=== PATIENT | female | born 1935 | race Caucasian/White ===

== ENCOUNTER 2020-07-09 12:40 | Inpatient (IN) | payer OTHER ==
[~2020-07-09] VITALS: Ht 157.5 cm; Wt 52.6 kg
[2020-07-09 12:41] VITALS: BP 188/56
[2020-07-09 13:01] LABS: ABSOLUTE NEUTROPHILS 6.6 thou/uL (1.4-8.2); BASOPHILS 0.4 % (0.0-2.0); EOSINOPHILS 4.4 % (0.0-3.0); HEMATOCRIT 38.9 % (37.0-47.0); HEMOGLOBIN 12.9 gm/dL (12.0-15.0); LYMPHOCYTES 15.4 % (24.0-44.0); MCHC 33.2 g/dL (28.0-37.0); MCV 87.3 fL (80.0-100.0); PLATELET COUNT 319 thou/uL (150-400); POLYS 75.8 % (36.0-66.0); RBC 4.46 mil/uL (4.20-5.00); WBC 8.6 thou/uL (4.0-11.0)
[2020-07-09 13:03] LABS: ANION GAP 7 mmol/L (7-16); BUN 12 mg/dL (7-18); CALCIUM 8.8 mg/dL (8.5-10.1); CHLORIDE 102 mmol/L (98-107); CO2 30 mmol/L (21-32); CREATININE 0.6 mg/dL (0.6-1.0); GLUCOSE 160 mg/dL (74-106); POTASSIUM 4.4 mmol/L (3.5-5.1); SODIUM 139 mmol/L (136-145)
[2020-07-09 13:12] LABS: MAGNESIUM 1.9 mg/dL (1.8-2.4); TROPONIN-I <0.06 ng/mL (<0.06)
[2020-07-09 13:43] LABS: URINE BILIRUBIN NEGATIVE (Negative); URINE BLOOD 1+ (Negative); URINE COLOR YELLOW; URINE GLUCOSE-RANDOM* NEGATIVE (Negative); URINE KETONES NEGATIVE (Negative); URINE NITRITE-REFLEX NEGATIVE (Negative); URINE PROTEIN (DIPSTICK) NEGATIVE (Negative); URINE UROBILINOGEN 0.2 E.U./dl (0.2-1.0)
[2020-07-09 13:44] LABS: URINE CLARITY HAZY; URINE LEUKOCYTES-REFLEX 3+ (Negative)
[2020-07-09 13:52] LABS: CASTS None Seen /LPF (None Seen); SQUAMOUS 0-3 Few /LPF (0-3)
[2020-07-09 13:53] LABS: URINE RBC 0-2 Rare /HPF (0-2); URINE WBC-REFLEX >25 Many /HPF (0-5)
[2020-07-09 13:54] LABS: CRYSTALS None Seen /LPF (None Seen); WBC CLUMPS Few (None Seen)
[2020-07-09 16:15] VITALS: BP 160/54
[2020-07-09] MEDS ORDERED: TYLENOL325 MG PO (16:17)
[2020-07-09] MEDS ORDERED: COLACE100 MG PO (16:17)
[2020-07-09] MEDS ORDERED: CALCIUM500 MG PO (16:17)
[2020-07-09] MEDS ORDERED: CLARITIN10 MG PO (16:17)
[2020-07-09] MEDS ORDERED: IBUPROFEN 200200 M1 PO (16:18)
[2020-07-09] MEDS ORDERED: IRON325 PO (16:18)
[2020-07-09] MEDS ORDERED: LASIX 20 MG TAB20 MG PO (16:18)
[2020-07-09] MEDS ORDERED: ROBITUSSIN15 MG/5 ML PO (16:20)
[2020-07-09] MEDS ORDERED: REMERON15 M2 PO (16:20)
[2020-07-09] MEDS ORDERED: LISINOPRIL2.5 MG PO (16:20)
[2020-07-09] MEDS ORDERED: TRAMADOL 50 MG50 MG PO (16:21)
--- NOTE | 2020-07-09 16:29 | NUR ---
1ST ATTEMPT TO CALL FOR INPATIENT REPORT, RECIEVING NURSE IN THE MIDDLE OF PT CARE AND WILL RETURN CALL ELIZABETH.
[2020-07-09 16:49] VITALS: BP 148/53
[2020-07-09 16:55] LABS: ALBUMIN 2.8 g/dL (3.4-5.0)
--- NOTE | 2020-07-09 20:02 | NUR ---
PATIENT ADMIT TO UNIT FROM ER AT 1710. A/O X4 BUT CONFUSED. 3RD HEART BLACK ON MONITOR. NPO FOR PACEMAKER TOMORROW. WILL KEEP MONITOR.
--- NOTE | 2020-07-09 20:17 | NUR ---
LAB CALLED WITH POSITVE RESULT FOR COVID. ENTERED CRITICAL RESULT IN INTERVENTIONS, CALLED [facility] ARCHITECT, AND SAMNATHA GALEANO.
[2020-07-09 20:44] VITALS: BP 176/57
[2020-07-09 23:46] VITALS: BP 168/58
[2020-07-10 04:42] VITALS: BP 143/68
--- NOTE | 2020-07-10 05:34 | NUR ---
Pt. able to state her name and it's Jun 2020. Repositioned prn. Pt. in complete heart block ,HR in the 30's. She is asymptomatic.Kept NPO for possible pacemaker placement today. Pt. stated she does not want pacemaker placement stating she feels ok. Informed her that insurance should take care of it. She then said no pacemaker today and to leave the old lady alone.
[2020-07-10 05:51] LABS: HEMATOCRIT 38.9 % (37.0-47.0); HEMOGLOBIN 12.8 gm/dL (12.0-15.0); MCH 28.6 pg (26.0-34.0); MCHC 32.9 g/dL (28.0-37.0); MCV 87.1 fL (80.0-100.0); RBC 4.47 mil/uL (4.20-5.00); RDW 14.9 % (10.5-14.5); WBC 8.2 thou/uL (4.0-11.0)
[2020-07-10 05:59] LABS: CALCIUM 9.3 mg/dL (8.5-10.1); CREATININE 0.5 mg/dL (0.6-1.0); MAGNESIUM 2.2 mg/dL (1.8-2.4); POTASSIUM 4.5 mmol/L (3.5-5.1)
[2020-07-10 07:33] VITALS: BP 128/52
--- NOTE | 2020-07-10 07:36 | EKG ---
[facility] [address] [place] [address] ELECTROCARDIOGRAM REPORT Name: JESSICA FLORES Room #: 352- ADM IN M.R.#: [id number] Admission: 07/09/20 Attend Phys: Luisito Tolliver MD Discharge: Date of : 39 Report #: [id number] THIS REPORT FOR: cc: Lucio Joshi James D. DO Santiago, Patrick MD [facility] ~ THIS REPORT FOR: //name// [facility] ED Test Date: 2020-07-09 Test Time: 12:46:20 Pat Name: JESSICA FLORES Department: Room: [facility] Gender: F Signals Officer: PANCHO OCAMPO : 1935 Requested By: Owen Paiz Order Number: [id number] MD: Erik Perez Measurements Intervals [place] Rate: 38 P: -67 CA: QRS: -9 QRSD: 187 T: QT: 485 QTc: 386 Interpretive Statements Complete AV block with wide QRS complex Nonspecific intraventricular conduction delay No previous ECG available for comparison Electronically Signed On 07-10-2020 7:35:56 CDT by Erik Perez [email or web address] <ELECTRONICALLY SIGNED> By: Erik Perez MD, FACC 07/10/20 0735 1246 1246 Erik Perez MD, [facility] /EPI
--- NOTE | 2020-07-10 08:44 | NUR ---
PT CARE ASSUMED APPROX 0700. ASSESSMENT CHARTED. PT ALERT AND ORIENTED X4 WITH DR MEZA THIS AM. PT WAS INFORMED BY OF NEED FOR PPM AND POTENTIAL OUTCOMES OF NOT GETTING PPM PLACED. THIS NURSE AT BEDSIDE DURING DISCUSSION WITH . PT REFUSED PPM TO DR MEZA BEFORE AND AFTER DISCUSSION. SHE VERBALIZED ACCURATELY ALL INFORMATION GIVEN BY . PT CARE TRANSFERRED TO 3W RN AT THIS TIME. NO DISTRESS NOTED.
[2020-07-10] MEDS ORDERED: CEFPODOXIME PR200 M1 PO (10:22)
[2020-07-10 11:12] VITALS: BP 146/79
--- NOTE | 2020-07-10 13:39 | NUR ---
PT CARE ASSUMED AT 0700, PT ALERT AND ORIENTED X4, FORGETFUL AT TIMES. PT DENIES CHEST PAIN, NAUSEA AND VOMITTING. PT DENIES ANY PAIN. ON ROOM AIR, NO SIGNS OF DISTRESS. PT IS INCONTINENT, AND CLEAN UP NEEDED. FALL PRECAUTIONS IN PLACE. 1330 PT HAS DISCHARGE ORDERS, ALL BELONGINGS PACKED AND SENT WITH PT BACK TO [facility]. CALLED ANDREA TO UPDATE D/C, NO ANSWER.
--- NOTE | 2020-07-10 13:43 | NUR ---
INITIAL ASSESSMENT/DISCHARGE NOTE: ALETHA reviewed chart and spoke with nursing and attending physician. Pt was admitted from [facility] due to complete heart block/UTI. Pt placed in Enhanced Isolation due to being COVID-19 positive. Pt refused to have pacemaker placed. Pt stable to return to the nursing facility today. ALETHA faxed clinical info and discharge orders/summary to [facility] post-acute liaison. Pt will return using her skilled benefit. Stretcher van transportation scheduled for [id number] per facility's arrangements. SW spoke with pt via phone to provide update and discuss discharge plan. Pt appears to be alert/orientated x 4 and is agreeable with discharge plan. Nursing to notify family and call report. No additional SW needs identified at this time, but is available to assist should needs arise.
--- NOTE | 2020-07-10 13:48 | NUR ---
REPORT GIVEN ANAHI SIMON AT [facility]
== END 2020-07-10 14:36 | DRG 308 ==
LOC: ER 12:40 → EROBS 14:29 → 3W 14:29
PROVIDERS: Emergency Medicine; ADMIT Internal Medicine; ATTEND Internal Medicine
DX: I44.2 Atrioventricular block, complete (principal); U07.1 COVID-19; N39.0 Urinary tract infection, site not specified; E46 Unspecified protein-calorie malnutrition; G82.20 Paraplegia, unspecified; F32.9 Major depressive disorder, single episode, unspecified; I10 Essential (primary) hypertension; M19.90 Unspecified osteoarthritis, unspecified site; Z79.899 Other long term (current) drug therapy; Z68.21 Body mass index [BMI] 21.0-21.9, adult
CPT/HCPCS: 10879